=== PATIENT | female | born 1980 | race Caucasian/White ===

== ENCOUNTER 2016-12-30 03:57 | Emergency (ER) | payer OTHER ==
--- NOTE | 2016-12-30 04:39 | ED NURSING NOTES ---
Clinical Report - Nurses [facility] [address] [place] [address] 12/30/2016 3:58 Patient: PREETI WU TRIAGE Triage time 04:05. Acuity: LEVEL 4. Chief Complaint: INSOMNIA (anxiety). Alert. No acute distress. --04:08 Alycia Calixto R.N. 04:05 12/30/16. BP: 128/84. HR: 61. RR: 17. O2 saturation: 100%. Temp: 97.6 F (oral). Pain level now: 0/10. --04:08 Alycia Calixto R.N. Weight: 58.9 kg stated. Height/Length: 62 inches Per Patient. BMI: 23.8. --04:07 Alycia Calixto R.N. Medications PROzac Oral (Capsule 20 mg) 3 capsules, daily. --04:06 Alycia Calixto R.N. Allergies No Known Drug Allergy. --04:06 Alycia Calixto R.N. History Arrived by private vehicle. Historian: patient. Primary physician (David Sales). Onset. (about 3 days ago). PAST MEDICAL HX: Immunizations: up-to-date. Last normal menstrual period now. SOCIAL HX: Heavy tobacco smoker (cigarette)- less than 1 pack per day. Occasional alcohol use. History of occasional drug use: marijuana. --04:08 Alycia Calixto R.N. PROBLEMS: Panic Attack. Depression. Anxiety Reaction. --04:06 Alycia Calixto R.N. ADDITIONAL SURGERIES: . --04:06 Alycia Calixto R.N. Interventions ID band on patient. To treatment room. --04:08 Alycia Calixto R.N. PHYSICAL ASSESSMENT Ambulatory to room. Patient gowned. GENERAL / NEURO / PSYCH: Alert. Oriented X 4. Appears anxious. HEENT: Mucous membranes are pink. RESPIRATORY: Respirations not labored. CVS: Capillary refill less than 2 seconds. SKIN: Skin is warm and dry. --04:08 Alycia Calixto R.N. NURSING PROGRESS NOTES Head of bed elevated. Two patient identifiers checked. Call light placed in reach. Side rails up x 1. Bed placed in lowest position. Brakes of bed on. --04:08 Alycia Calixto R.N. Patient ready for evaluation- chart flagged. --04:08 Alycia Calixto R.N. DISPOSITION / DISCHARGE Condition at departure: stable. No learning barriers present. Discharge instructions provided and reviewed with the patient. Reviewed medication(s) side effects, precautions, dosing and course information. Prescription(s) given to the patient. Patient verbalized understanding. Written instructions provided in Yoruba. The patient was discharged home. She left the Emergency Department ambulatory and via private vehicle. --04:54 Alycia Calixto R.N. 04:53 12/30/16. BP: deferred. HR: deferred. RR: 18 (regular and unlabored). O2 saturation: deferred. Temp: deferred. Pain level now: 0/10. --04:54 Alycia Calixto R.N. Locked/Released at 12/30/2016 4:54 by Alycia Calixto R.N.
--- NOTE | 2016-12-30 04:39 | ED CLINICAL REPORT ---
Clinical Report - Physicians/Mid Levels [facility] [address] [place] [address] 12/30/2016 3:58 Patient: PREETI WU Time Seen: 04:05; initial patient contact. Arrived- By private vehicle. Historian- patient. HISTORY OF PRESENT ILLNESS Chief Complaint: ANXIOUS and MEDICATION REFILL. This started about 3 days ago. The patient is compliant with medication. No recent drug use or alcohol consumption. Has not been sleeping. She has had anxiety. No suicidal thoughts or self-injury inflicted. The symptoms are described as mild. No injury is present. Similar symptoms previously: Recent medical care: Not recently seen/assessed. REVIEW OF SYSTEMS No palpitations, vomiting or difficulty breathing. All systems otherwise negative, except as recorded above. PAST HISTORY ( Panic Attack. Depression. Anxiety Reaction. SURGERIES: ). SOCIAL HISTORY Current every day smoker. Occasional alcohol use. History of drug use: marijuana. Has social support. Has place to stay. ADDITIONAL NOTES The nursing notes have been reviewed. PHYSICAL EXAM Vital Signs: 12/30/2016 04:05 BP: 128/84. HR: 61. RR: 17. O2 saturation: 100%. Temp: 97.6 F. Pain level now: 0/10. Have been reviewed as normal. Appearance: Alert. No acute distress. Appearance is normal. CVS: Normal heart rate and rhythm. Heart sounds normal. Respiratory: No respiratory distress. Breath sounds normal. Psych / Neuro: Oriented X 3. Mood and affect normal. Speech normal. Cognition normal. Thought process and content normal. Insight and judgement normal. PROGRESS AND PROCEDURES Disposition: Discharged home in good condition. Condition: good. CLINICAL IMPRESSION Panic attack INSTRUCTIONS Do not work today. Your Current Medications: CONTINUE TAKING THE FOLLOWING MEDICATIONS: PROzac Oral : Capsule 20 mg, 3 capsules daily. Prescription Medications: Buspirone 7.5 mg: take 1 tablet every 12 hours. Dispense thirty (30). No refills. Vistaril 50 mg: take 1 orally every 6 hours as needed for anxiety. Dispense twenty (20). No refill. Substitution is permissible. Follow-up: Follow up with your doctor in about two days. Call for an appointment. Screening today revealed the patient's blood pressure to be in the pre-hypertensive range. The patient should follow up with a primary care provider for blood pressure management. (Electronically signed by Amarjit Smyth Dr. 12/30/2016 8:15)
--- NOTE | 2016-12-30 04:39 | ED NURSING NOTES ---
Clinical Report - Nurses [facility] [address] [place] [address] 12/30/2016 3:58 Patient: PREETI WU TRIAGE Triage time 04:05. Acuity: LEVEL 4. Chief Complaint: INSOMNIA (anxiety). Alert. No acute distress. --04:08 Alycia Calixto R.N. 04:05 12/30/16. BP: 128/84. HR: 61. RR: 17. O2 saturation: 100%. Temp: 97.6 F (oral). Pain level now: 0/10. --04:08 Alycia Calixto R.N. Weight: 58.9 kg stated. Height/Length: 62 inches Per Patient. BMI: 23.8. --04:07 Alycia Calixto R.N. Medications PROzac Oral (Capsule 20 mg) 3 capsules, daily. --04:06 Alycia Calixto R.N. Allergies No Known Drug Allergy. --04:06 Alycia Calixto R.N. History Arrived by private vehicle. Historian: patient. Primary physician (David Sales). Onset. (about 3 days ago). PAST MEDICAL HX: Immunizations: up-to-date. Last normal menstrual period now. SOCIAL HX: Heavy tobacco smoker (cigarette)- less than 1 pack per day. Occasional alcohol use. History of occasional drug use: marijuana. --04:08 Alycia Calixto R.N. PROBLEMS: Panic Attack. Depression. Anxiety Reaction. --04:06 Alycia Calixto R.N. ADDITIONAL SURGERIES: . --04:06 Alycia Calixto R.N. Interventions ID band on patient. To treatment room. --04:08 Alycia Calixto R.N. PHYSICAL ASSESSMENT Ambulatory to room. Patient gowned. GENERAL / NEURO / PSYCH: Alert. Oriented X 4. Appears anxious. HEENT: Mucous membranes are pink. RESPIRATORY: Respirations not labored. CVS: Capillary refill less than 2 seconds. SKIN: Skin is warm and dry. --04:08 Alycia Calixto R.N. NURSING PROGRESS NOTES Head of bed elevated. Two patient identifiers checked. Call light placed in reach. Side rails up x 1. Bed placed in lowest position. Brakes of bed on. --04:08 Alycia Calixto R.N. Patient ready for evaluation- chart flagged. --04:08 Alycia Calixto R.N. DISPOSITION / DISCHARGE Condition at departure: stable. No learning barriers present. Discharge instructions provided and reviewed with the patient. Reviewed medication(s) side effects, precautions, dosing and course information. Prescription(s) given to the patient. Patient verbalized understanding. Written instructions provided in Amharic. The patient was discharged home. She left the Emergency Department ambulatory and via private vehicle. --04:54 Alycia Calixto R.N. 04:53 12/30/16. BP: deferred. HR: deferred. RR: 18 (regular and unlabored). O2 saturation: deferred. Temp: deferred. Pain level now: 0/10. --04:54 Alycia Calixto R.N. Locked/Released at 12/30/2016 4:54 by Alycia Calixto R.N.
--- NOTE | 2016-12-30 04:39 | ED CLINICAL REPORT ---
Clinical Report - Physicians/Mid Levels [facility] [address] [place] [address] 12/30/2016 3:58 Patient: PREETI WU Time Seen: 04:05; initial patient contact. Arrived- By private vehicle. Historian- patient. HISTORY OF PRESENT ILLNESS Chief Complaint: ANXIOUS and MEDICATION REFILL. This started about 3 days ago. The patient is compliant with medication. No recent drug use or alcohol consumption. Has not been sleeping. She has had anxiety. No suicidal thoughts or self-injury inflicted. The symptoms are described as mild. No injury is present. Similar symptoms previously: Recent medical care: Not recently seen/assessed. REVIEW OF SYSTEMS No palpitations, vomiting or difficulty breathing. All systems otherwise negative, except as recorded above. PAST HISTORY ( Panic Attack. Depression. Anxiety Reaction. SURGERIES: ). SOCIAL HISTORY Current every day smoker. Occasional alcohol use. History of drug use: marijuana. Has social support. Has place to stay. ADDITIONAL NOTES The nursing notes have been reviewed. PHYSICAL EXAM Vital Signs: 12/30/2016 04:05 BP: 128/84. HR: 61. RR: 17. O2 saturation: 100%. Temp: 97.6 F. Pain level now: 0/10. Have been reviewed as normal. Appearance: Alert. No acute distress. Appearance is normal. CVS: Normal heart rate and rhythm. Heart sounds normal. Respiratory: No respiratory distress. Breath sounds normal. Psych / Neuro: Oriented X 3. Mood and affect normal. Speech normal. Cognition normal. Thought process and content normal. Insight and judgement normal. PROGRESS AND PROCEDURES Disposition: Discharged home in good condition. Condition: good. CLINICAL IMPRESSION Panic attack INSTRUCTIONS Do not work today. Your Current Medications: CONTINUE TAKING THE FOLLOWING MEDICATIONS: PROzac Oral : Capsule 20 mg, 3 capsules daily. Prescription Medications: Buspirone 7.5 mg: take 1 tablet every 12 hours. Dispense thirty (30). No refills. Vistaril 50 mg: take 1 orally every 6 hours as needed for anxiety. Dispense twenty (20). No refill. Substitution is permissible. Follow-up: Follow up with your doctor in about two days. Call for an appointment. Screening today revealed the patient's blood pressure to be in the pre-hypertensive range. The patient should follow up with a primary care provider for blood pressure management. (Electronically signed by Amarjit Smyth Dr. 12/30/2016 8:15)
--- NOTE | 2016-12-30 08:15 | ED MED RECONCILIATION SUMMARY ---
Patient: PREETI WU Medication Reconciliation Report [facility] VisitID: [id number] [place] [address] 36y, F Registration Date/Time: 12/30/2016 Weight: 58.9 kg Height/Length: 62 in. BMI: 23.8 ALLERGIES: No Known Drug Allergy The patient's Home Medications are listed below: CONTINUE TAKING THE FOLLOWING MEDICATIONS: PROzac Oral (20 mg) 3 capsules, daily The source(s) of the original Home Medication information: Not obtained. The following Medications were given to the patient in the Emergency Department: None. The following Medications were prescribed to the patient: Buspirone 7.5 mg: take 1 tablet every 12 hours. Dispense thirty (30). No refills. -- Amarjit Smyth Dr. Vistaril 50 mg: take 1 orally every 6 hours as needed for anxiety. Dispense twenty (20). No refill. Substitution is permissible. -- Amarjit Smyth Dr.
--- NOTE | 2016-12-30 08:15 | ED DISCHARGE INSTRUCTIONS ---
Patient: PREETI WU General Instructions [facility] VisitID: [id number] [place] [address] 36y, F Registration Date/Time: 12/30/2016 Panic attack INSTRUCTIONS Do not work today. Your Current Medications: CONTINUE TAKING THE FOLLOWING MEDICATIONS: PROzac Oral : Capsule 20 mg, 3 capsules daily. Prescription Medications: Buspirone 7.5 mg: take 1 tablet every 12 hours. Dispense thirty (30). No refills. Vistaril 50 mg: take 1 orally every 6 hours as needed for anxiety. Dispense twenty (20). No refill. Substitution is permissible. Follow-up: Follow up with your doctor in about two days. Call for an appointment. Screening today revealed the patient's blood pressure to be in the pre-hypertensive range. The patient should follow up with a primary care provider for blood pressure management. ADDITIONAL INFORMATION Panic Attack A panic attack is an extreme fear reaction that comes on for no apparent reason. Symptoms may include pounding or racing heartbeat, shortness of breath, dizziness, weakness and sweating. There is usually a fear that something terrible will happen or that you may . The attack may last a few minutes up to a few hours. Between attacks things will seem quite normal. This condition has a psychological cause and can be treated with the help of a therapist or psychiatrist. Medication is often used and can be very helpful for this problem. Home Care: Try to identify the sources of stress in your life. It may not be obvious! These may include: Daily hassles of life which pile up (traffic jams, missed appointments, car troubles, etc.). Major life changes, both good (new baby, job promotion) and bad (loss of job, loss of loved one). Overload: feeling that you have too many responsibilities and can't take care of everything at once. Helplessness: feeling like your problems are too much for you to handle. Notice how your body reacts to stress. Learn to listen to your body signals so that you can take action before the stress becomes severe. When possible, AVOID or REDUCE THE CAUSE OF STRESS. Avoid hassles, limit the amount of change that is happening in your life at one time or take a break when you feel overloaded. Unfortunately, many stressful situations cannot be avoided. Therefore, it is necessary to LEARN HOW TO MANAGE STRESS better. There are many proven methods that work and will reduce your anxiety. These include simple things like exercise, good nutrition and adequate rest. Also, there are certain techniques that are helpful: relaxation and breathing exercises, visualization, biofeedback, meditation or simply taking some time-out to clear your mind. For more information about this, consult your doctor or go to a local bookstore and review the many books and tapes available on this subject. Follow Up with your doctor or a therapist as advised. Get Prompt Medical Attention if any of the following occur: Worsening of your symptoms to the point of feeling [id number] A change in the type of pain: if it feels different, becomes more severe, lasts longer, or begins to spread into your shoulder, arm, neck, jaw or back Shortness of breath or increased pain with breathing Increasing feeling of weakness or dizziness Fainting Cough with dark colored sputum (phlegm) or blood Fever of 100.4F (38C) or higher, or as directed by your healthcare provider Swelling, pain or redness in one leg Hydroxyzine Pamoate Oral capsule What is this medicine? HYDROXYZINE (monse DROX i zeen) is an antihistamine. This medicine is used to treat allergy symptoms. It is also used to treat anxiety and tension. This medicine can be used with other medicines to induce sleep before surgery. How should I use this medicine? Take this medicine by mouth with a full glass of water. Follow the directions on the prescription label. You may take this medicine with food or on an empty stomach. Take your medicine at regular intervals. Do not take your medicine more often than directed. Talk to your main entree cook and cashier regarding the use of this medicine in children. Special care may be needed. While this drug may be prescribed for children as young as 6 years of age for selected conditions, precautions do apply. Patients over 65 years old may have a stronger reaction and need a smaller dose. What side effects may I notice from receiving this medicine? Side effects that you should report to your doctor or health nursing care partner as soon as possible: fast or irregular heartbeat difficulty passing urine seizures slurred speech or confusion tremor Side effects that usually do not require medical attention (report to your doctor or health nursing care partner if they continue or are bothersome): constipation drowsiness fatigue headache stomach upset What may interact with this medicine? alcohol barbiturate medicines for sleep or seizures medicines for colds, allergies medicines for depression, anxiety, or emotional disturbances medicines for pain medicines for sleep muscle relaxants What if I miss a dose? If you miss a dose, take it as soon as you can. If it is almost time for your next dose, take only that dose. Do not take double or extra doses. Where should I keep my medicine? Keep out of the reach of children. Store at room temperature between 15 and 30 degrees C (59 and 86 degrees F). Keep container tightly closed. Throw away any unused medicine after the expiration date. What should I tell my health care provider before I take this medicine? They need to know if you have any of these conditions: any chronic illness difficulty passing urine glaucoma heart disease kidney disease liver disease lung disease an unusual or allergic reaction to hydroxyzine, cetirizine, other medicines, foods, dyes, or preservatives or trying to get breast-feeding What should I watch for while using this medicine? Tell your doctor or health nursing care partner if your symptoms do not improve. You may get drowsy or dizzy. Do not drive, use machinery, or do anything that needs mental alertness until you know how this medicine affects you. Do not stand or sit up quickly, especially if you are an older patient. This reduces the risk of dizzy or fainting spells. Alcohol may interfere with the effect of this medicine. Avoid alcoholic drinks. Your mouth may get dry. Chewing sugarless gum or sucking hard candy, and drinking plenty of water may help. Contact your doctor if the problem does not go away or is severe. This medicine may cause dry eyes and blurred vision. If you wear contact lenses you may feel some discomfort. Lubricating drops may help. See your eye doctor if the problem does not go away or is severe. If you are receiving skin tests for allergies, tell your doctor you are using this medicine. You have been given the following additional information: Panic Attack Hydroxyzine Pamoate Oral capsule Do not work today. (Electronically signed by Amarjit Smyth Dr. 12/30/2016 8:15)
--- NOTE | 2016-12-30 08:15 | ED MAR SUMMARY ---
..... Medication Administration Record [facility] [address] [place] [place], [place] [id number] Patient: PREETI WU Visit ID: [id number] 36y, F Weight: 58.9 kg Height/Length: 62 in BMI: 23.8 ALLERGIES: No Known Drug Allergy
--- NOTE | 2016-12-30 08:15 | ED DISCHARGE INSTRUCTIONS ---
Patient: PREETI WU General Instructions [facility] VisitID: [id number] [place] [address] 36y, F Registration Date/Time: 12/30/2016 Panic attack INSTRUCTIONS Do not work today. Your Current Medications: CONTINUE TAKING THE FOLLOWING MEDICATIONS: PROzac Oral : Capsule 20 mg, 3 capsules daily. Prescription Medications: Buspirone 7.5 mg: take 1 tablet every 12 hours. Dispense thirty (30). No refills. Vistaril 50 mg: take 1 orally every 6 hours as needed for anxiety. Dispense twenty (20). No refill. Substitution is permissible. Follow-up: Follow up with your doctor in about two days. Call for an appointment. Screening today revealed the patient's blood pressure to be in the pre-hypertensive range. The patient should follow up with a primary care provider for blood pressure management. ADDITIONAL INFORMATION Panic Attack A panic attack is an extreme fear reaction that comes on for no apparent reason. Symptoms may include pounding or racing heartbeat, shortness of breath, dizziness, weakness and sweating. There is usually a fear that something terrible will happen or that you may . The attack may last a few minutes up to a few hours. Between attacks things will seem quite normal. This condition has a psychological cause and can be treated with the help of a therapist or psychiatrist. Medication is often used and can be very helpful for this problem. Home Care: Try to identify the sources of stress in your life. It may not be obvious! These may include: Daily hassles of life which pile up (traffic jams, missed appointments, car troubles, etc.). Major life changes, both good (new baby, job promotion) and bad (loss of job, loss of loved one). Overload: feeling that you have too many responsibilities and can't take care of everything at once. Helplessness: feeling like your problems are too much for you to handle. Notice how your body reacts to stress. Learn to listen to your body signals so that you can take action before the stress becomes severe. When possible, AVOID or REDUCE THE CAUSE OF STRESS. Avoid hassles, limit the amount of change that is happening in your life at one time or take a break when you feel overloaded. Unfortunately, many stressful situations cannot be avoided. Therefore, it is necessary to LEARN HOW TO MANAGE STRESS better. There are many proven methods that work and will reduce your anxiety. These include simple things like exercise, good nutrition and adequate rest. Also, there are certain techniques that are helpful: relaxation and breathing exercises, visualization, biofeedback, meditation or simply taking some time-out to clear your mind. For more information about this, consult your doctor or go to a local bookstore and review the many books and tapes available on this subject. Follow Up with your doctor or a therapist as advised. Get Prompt Medical Attention if any of the following occur: Worsening of your symptoms to the point of feeling [id number] A change in the type of pain: if it feels different, becomes more severe, lasts longer, or begins to spread into your shoulder, arm, neck, jaw or back Shortness of breath or increased pain with breathing Increasing feeling of weakness or dizziness Fainting Cough with dark colored sputum (phlegm) or blood Fever of 100.4F (38C) or higher, or as directed by your healthcare provider Swelling, pain or redness in one leg Hydroxyzine Pamoate Oral capsule What is this medicine? HYDROXYZINE (monse DROX i zeen) is an antihistamine. This medicine is used to treat allergy symptoms. It is also used to treat anxiety and tension. This medicine can be used with other medicines to induce sleep before surgery. How should I use this medicine? Take this medicine by mouth with a full glass of water. Follow the directions on the prescription label. You may take this medicine with food or on an empty stomach. Take your medicine at regular intervals. Do not take your medicine more often than directed. Talk to your administrator health care facility regarding the use of this medicine in children. Special care may be needed. While this drug may be prescribed for children as young as 6 years of age for selected conditions, precautions do apply. Patients over 65 years old may have a stronger reaction and need a smaller dose. What side effects may I notice from receiving this medicine? Side effects that you should report to your doctor or health careers counsellor as soon as possible: fast or irregular heartbeat difficulty passing urine seizures slurred speech or confusion tremor Side effects that usually do not require medical attention (report to your doctor or health careers counsellor if they continue or are bothersome): constipation drowsiness fatigue headache stomach upset What may interact with this medicine? alcohol barbiturate medicines for sleep or seizures medicines for colds, allergies medicines for depression, anxiety, or emotional disturbances medicines for pain medicines for sleep muscle relaxants What if I miss a dose? If you miss a dose, take it as soon as you can. If it is almost time for your next dose, take only that dose. Do not take double or extra doses. Where should I keep my medicine? Keep out of the reach of children. Store at room temperature between 15 and 30 degrees C (59 and 86 degrees F). Keep container tightly closed. Throw away any unused medicine after the expiration date. What should I tell my health care provider before I take this medicine? They need to know if you have any of these conditions: any chronic illness difficulty passing urine glaucoma heart disease kidney disease liver disease lung disease an unusual or allergic reaction to hydroxyzine, cetirizine, other medicines, foods, dyes, or preservatives or trying to get breast-feeding What should I watch for while using this medicine? Tell your doctor or health careers counsellor if your symptoms do not improve. You may get drowsy or dizzy. Do not drive, use machinery, or do anything that needs mental alertness until you know how this medicine affects you. Do not stand or sit up quickly, especially if you are an older patient. This reduces the risk of dizzy or fainting spells. Alcohol may interfere with the effect of this medicine. Avoid alcoholic drinks. Your mouth may get dry. Chewing sugarless gum or sucking hard candy, and drinking plenty of water may help. Contact your doctor if the problem does not go away or is severe. This medicine may cause dry eyes and blurred vision. If you wear contact lenses you may feel some discomfort. Lubricating drops may help. See your eye doctor if the problem does not go away or is severe. If you are receiving skin tests for allergies, tell your doctor you are using this medicine. You have been given the following additional information: Panic Attack Hydroxyzine Pamoate Oral capsule Do not work today. (Electronically signed by Amarjit Smyth Dr. 12/30/2016 8:15)
--- NOTE | 2016-12-30 08:15 | ED MED RECONCILIATION SUMMARY ---
Patient: PREETI WU Medication Reconciliation Report [facility] VisitID: [id number] [place] [address] 36y, F Registration Date/Time: 12/30/2016 Weight: 58.9 kg Height/Length: 62 in. BMI: 23.8 ALLERGIES: No Known Drug Allergy The patient's Home Medications are listed below: CONTINUE TAKING THE FOLLOWING MEDICATIONS: PROzac Oral (20 mg) 3 capsules, daily The source(s) of the original Home Medication information: Not obtained. The following Medications were given to the patient in the Emergency Department: None. The following Medications were prescribed to the patient: Buspirone 7.5 mg: take 1 tablet every 12 hours. Dispense thirty (30). No refills. -- Amarjit Smyth Dr. Vistaril 50 mg: take 1 orally every 6 hours as needed for anxiety. Dispense twenty (20). No refill. Substitution is permissible. -- Amarjit Smyth Dr.
--- NOTE | 2016-12-30 08:15 | ED MAR SUMMARY ---
..... Medication Administration Record [facility] [address] [place], [place] [id number] Patient: PREETI WU Visit ID: [id number] 36y, F Weight: 58.9 kg Height/Length: 62 in BMI: 23.8 ALLERGIES: No Known Drug Allergy
== END 2016-12-30 04:52 | disposition home or self-care (01) ==
LOC: ED SRH 03:57
DX: F41.0 Panic disorder [episodic paroxysmal anxiety] (principal); F17.210 Nicotine dependence, cigarettes, uncomplicated; Z79.899 Other long term (current) drug therapy